=== PATIENT | female | born 1940 | race Caucasian/White ===

== ENCOUNTER 2016-11-08 12:52 | Inpatient (IN) ==
--- NOTE | 2016-11-08 15:34 | Internal Med History&Physical ---
Date of Encounter: 11/08/16 Time of Encounter: 15:32 Assessment and Plan (1) History of total left knee replacement Current visit: Yes Status: Acute Patient was brought in for rehabilitation status post left total knee replacement (2) Arthritis of knee, left Current visit: No Status: Acute This is the reason for the surgery (3) COPD (chronic obstructive pulmonary disease) Current visit: No Status: Chronic By history Qualifiers: COPD type: unspecified COPD Qualified Code(s): J44.9 - Chronic obstructive pulmonary disease, unspecified (4) History of lymphoma Current visit: No Status: Chronic Currently not an acute problem (5) Obesity (BMI 30.0-34.9) Current visit: No Status: Chronic Noted (6) Malignant lymphoma, lymphoplasmacytic Current visit: No Status: Chronic Noted by history Internal Medicine - H&P: HPI Chief complaint: Patient had severe arthritis pain in her left knee and she had a knee repla Admitted From: Hospital to Hospital Transfer Plans for Post Hospital Care: Home History of present illness: Ms. Sprague is a 76 year old female Age and is here for rehabilitation status post left total knee replacement Past Med Surg Social Fam HX - Past Medical History Medical history: CHF, COPD, coronary artery disease, diabetes, GERD, hyperlipidemia, hypertension, myocardial infarction Psychiatric history: anxiety, depression - Past Surgical History Surgical History: appendectomy, hysterectomy, orthopedic, other, other - Social History Smoking Status: Former smoker Smokeless Tobacco Status: No Alcohol use: none Drug use: none Internal Medicine - H&P: Meds Albuterol Neb [Proventil Neb] 2.5 mg IH Q4HR PRN 06/14/16 [History] Albuterol Sulfate [Ventolin Hfa] 2 puff IH Q4H PRN 06/14/16 [History] Amitriptyline HCl 100 mg PO HS 06/14/16 [History] Ascorbate Calcium [Vitamin C] 500 mg PO DAILY 06/14/16 [History] Bumetanide 3 mg PO QAM 06/14/16 [History] Bumetanide [Bumex] 1 mg PO QPM 06/14/16 [History] Cholecalciferol (D-3) [Vitamin D] 5,000 unit PO DAILY 06/14/16 [History] Clopidogrel [Plavix] 75 mg PO DAILY 06/14/16 [History] Cyanocobalamin (Vitamin B-12) [Vitamin B-12] 1,000 mcg SL DAILY 06/14/16 [ History] Darbepoetin [place] in Polysorbat [Aranesp] 200 mcg IJ Q2W 06/14/16 [History] Fluticasone Propionate Nasal [Flonase] 1 spr NS DAILY PRN 06/14/16 [History] Fluticasone/Salmeterol [Advair 250-50 Diskus] 1 each IH BID 06/14/16 [History] Guaifenesin [Mucinex] 600 mg PO Q12H 06/14/16 [History] Insulin Glargine,Hum.rec.anlog [Lantus Solostar] 25 unit SQ HS 06/14/16 [History ] Insulin LISPRO [HumaLOG] 6 units SQ TIDWM 06/14/16 [History] Isosorbide MONOnitrate (24 HR) [Imdur] 30 mg PO DAILY 06/14/16 [History] LORazepam [Ativan] 0.5 mg PO TID PRN 06/14/16 [History] Losartan Potassium [Cozaar] 100 mg PO DAILY 06/14/16 [History] Metoprolol [Lopressor] 50 mg PO BID 06/14/16 [History] Montelukast [Singulair] 10 mg PO HS 06/14/16 [History] Nitroglycerin [Nitrostat] 0.4 mg SL Q5M PRN 06/14/16 [History] Omeprazole [PriLOSEC] 40 mg PO DAILY 06/14/16 [History] Quetiapine Fumarate [SEROquel] 100 mg PO HS 06/14/16 [History] Sennosides [Senna] 8.6 mg PO DAILY 06/14/16 [History] Umeclidinium [place] [Incruse Ellipta] 1 puff IH DAILY 06/14/16 [History] Venlafaxine HCl [Effexor Xr] 225 mg PO DAILY 06/14/16 [History] HYDROcodone/Acet 10/325 mg [[place] 10-325 mg] 1 tab PO Q8H PRN 08/31/16 [History] Folic Acid 1 mg PO DAILY #30 tablet 10/23/16 [Rx] Aspirin Enteric Coated [Aspirin EC] 325 mg PO DAILY #21 tablet. 11/05/16 [Rx] HYDROcodone/Acet 5/325 mg [[place] 5-325 mg] 1 - 2 tab PO DAILY #14 tab 11/05/16 [ Rx] Atorvastatin Calcium [Lipitor] 20 mg PO Q48H 11/06/16 [History] Calcitriol 0.5 mcg PO BID 11/06/16 [History] Allergies codeine Adverse Reaction (Verified 11/06/16 12:20) Nausea NSAIDS (Non-Steroidal Anti-Inflamma Adverse Reaction (Verified 11/06/16 12:20) Nausea tramadol [From Ultram] Adverse Reaction (Verified 11/06/16 12:20) Nausea All Systems PM: A 10-system review of systems was performed and is negative for pertinent findings except as documented above in the HPI. - Constitutional Vitals: Temp Pulse Resp BP Pulse Ox 98.1 F 107 16 153/68 100 11/08/16 14:37 11/08/16 14:37 11/08/16 14:37 11/08/16 14:37 11/08/16 14:37 - Head Head exam: Present: atraumatic, normal inspection, normocephalic - Neck Neck exam general surgery: Present: supple, trachea midline. Absent: lymphadenopathy - Respiratory Respiratory exam: Present: CTAB. Absent: accessory muscle use, rales, rhonchi, wheezes - Cardiovascular Cardiovascular exam: Present: RRR, +S1, +S2. Absent: diastolic murmur, gallop, rubs, systolic murmur Internal Med - H&P Results - Labs Labs: Labs pending
[2016-11-08] MEDS ORDERED: Albuterol 2.5 MG/3 ML NEBULIZER IH PRN (16:07)
[2016-11-08] MEDS ORDERED: Fluticasone Propionate Nasal 50 MCG/SPRAY BOTTLE NS PRN (16:07)
[2016-11-08] MEDS ORDERED: Nitroglycerin 0.4 MG TAB.SUBL SL PRN (16:07)
[2016-11-08] MEDS: Insulin LISPRO 300 UNITS/3 ML VIAL SQ SCH (17:17)
[2016-11-08] MEDS: Bumetanide 1 MG TABLET PO SCH (17:17)
[2016-11-08] MEDS: *HR* HYDROcodone/Acet 10/325 mg TABLET PO PRN ×2 (17:17→21:13)
[2016-11-08] MEDS ORDERED: Insulin DETEMIR 100 UNIT/ML per UNIT SQ ONE (21:00)
[2016-11-08] MEDS: Budesonide/Formoterol 80/4.5 MDI IH SCH (21:14)
[2016-11-08] MEDS: *HR* LORazepam 0.5 MG TABLET PO PRN (21:20)
[2016-11-09] MEDS: *HR* HYDROcodone/Acet 10/325 mg TABLET PO PRN ×3 (04:32→13:34)
[2016-11-09 05:39] LABS: Basophils % 0.2 %; Eosinophils # 0.3 K/mcL (0.0-0.6); Eosinophils % 3.2 %; Hematocrit 25.8 % (35.3-44.9); Hemoglobin 8.4 g/dL (11.5-15.4); INR 1.1; Immature Granulocytes % 1.2 % (0-4); Lymphocytes # 1.3 K/mcL (0.6-4.6); Lymphocytes % 12.8 %; Mean Corpuscular HGB Conc 32.6 g/dL (31.6-35.5); Mean Corpuscular Hemoglobin 30.5 pg (28.0-33.3); Mean Corpuscular Volume 93.8 fL (83.0-100.0); Mean Platelet Volume 8.4 fL (9.4-12.4); Monocytes # 1.2 K/mcL (0.0-1.3); Monocytes % 11.7 %; Platelet Count 277 K/mcL (140-400); Prothrombin Time 11.8 Seconds (9.4-12.1); Red Blood Count 2.75 M/mcL (3.82-4.97); Red Cell Distribution Width 14.4 % (11.5-14.5); Segmented Neutrophils % 70.9 %
[2016-11-09 05:42] LABS: Activated Partial Thrombo Time 25.5 Seconds (26.0-36.0)
[2016-11-09 05:49] LABS: BUN/Creatinine Ratio 25 (6-26); Blood Urea Nitrogen 24 mg/dL (7-20); Calcium 9.9 mg/dL (8.6-10.8); Carbon Dioxide 24 mEq/L (19-29); Chloride 100 mEq/L (98-109); Glucose 122 mg/dL (70-99); Osmolality,Calculated 287 (280-300); Sodium 136 mEq/L (136-145); eGFR For African Americans > 60 (> 60); eGFR For Non-African Americans 57 (> 60)
[2016-11-09] MEDS: Bumetanide 1 MG TABLET PO SCH ×2 (08:49→18:20)
[2016-11-09] MEDS: Cholecalciferol (D-3) 1,000 UNIT TABLET PO SCH (08:49)
[2016-11-09] MEDS: Cyanocobalamin (B-12) 1,000 MCG TABLET PO SCH (08:49)
[2016-11-09] MEDS: Insulin LISPRO 300 UNITS/3 ML VIAL SQ SCH ×3 (08:50→18:20)
[2016-11-09] MEDS: Isosorbide MONOnitrate (24 HR) 30 MG TAB.ER.24H PO SCH (08:50)
[2016-11-09] MEDS: Aspirin Enteric Coated 325 MG Tablet PO SCH (08:50)
[2016-11-09] MEDS: Folic Acid 1 MG TABLET PO SCH (08:50)
[2016-11-09] MEDS: Venlafaxine XR (24 HR) 75 MG CAP.ER.24H PO SCH (08:51)
[2016-11-09] MEDS: Ascorbic Acid 500 MG TABLET PO SCH (08:52)
[2016-11-09] MEDS: (Umeclidinium Bromide [Incruse Ellipta] 1 PUFF) IH SCH (08:52)
[2016-11-09] MEDS: Budesonide/Formoterol 80/4.5 MDI IH SCH ×2 (08:52→21:35)
[2016-11-09] MEDS ORDERED: Sennosides 8.6 MG TABLET PO SCH (09:00)
--- NOTE | 2016-11-09 14:28 | Internal Med Progress Note ---
Date of Encounter: 11/09/16 Time of Encounter: 14:26 - Assessment and plan (1) History of total left knee replacement Current Visit: Yes Status: Acute Assessment and plan: Patient's here for total knee replacement due to osteoarthritis. Incisions clean dry (2) Arthritis of knee, left Current Visit: No Status: Acute Assessment and plan: Reason for the surgery (3) COPD (chronic obstructive pulmonary disease) Current Visit: No Status: Chronic Assessment and plan: By history no acute problem Qualifiers: COPD type: unspecified COPD Qualified Code(s): J44.9 - Chronic obstructive pulmonary disease, unspecified (4) History of lymphoma Current Visit: No Status: Chronic Assessment and plan: Again by history with no acute problem (5) Obesity (BMI 30.0-34.9) Current Visit: No Status: Chronic Assessment and plan: Noted (6) Malignant lymphoma, lymphoplasmacytic Current Visit: No Status: Chronic Assessment and plan: Noted - Time Spent With Patient less than 15 minutes - Subjective Interval history: Only complains pain - Constitutional Vitals: Temp Pulse Resp BP Pulse Ox 98.7 F 93 18 131/81 94 11/09/16 11:38 11/09/16 11:38 11/09/16 11:38 11/09/16 11:38 11/09/16 11:38 - Head Head exam: Present: atraumatic, normal inspection, normocephalic - Neck Neck exam general surgery: Present: supple, trachea midline. Absent: lymphadenopathy - Respiratory Respiratory exam: Present: CTAB. Absent: accessory muscle use, rales, rhonchi, wheezes - Cardiovascular Cardiovascular exam: Present: RRR, +S1, +S2. Absent: diastolic murmur, gallop, rubs, systolic murmur Internal Medicine: Result - Labs CBC & Chem 7: 11/09/16 05:30 11/09/16 05:30 Labs: Short CBC 11/09/16 Range/Units 05:30 WBC 9.9 (4.3-11.1) K/mcL Hgb 8.4 L (11.5-15.4) g/dL Hct 25.8 L (35.3-44.9) % Plt Count 277 (140-400) K/mcL Neutrophils # 7.0 (1.6-8.9) K/mcL BMP 11/09/16 05:30 Sodium 136 Potassium 4.0 Chloride 100 Carbon Dioxide 24 BUN 24 H Creatinine 0.96 Glucose 122 H Calcium 9.9 Lab as stated - ABG Interpretation ABG results: PT/INR, D-dimer PT 11.8 Seconds (9.4-12.1) 11/09/16 05:30 Consult Discharge Plan - Plan Referrals: Ender Angulo MD [Primary Care Provider] - (Tuesday, November 15, 2016 at 1:30 [facility] [place] [address], [facility], [place] [phone] November at 9:30 [facility] [place] [address], [facility], [place] [phone] November at 1:00 [address], [facility] [place], [place] [phone] [facility] Monday, December 05, 2016 at 9:45 Dar[facility] [place] [address], [facility], [place] [phone] Monday, December 12, 2016 at 3:55 [facility] [place] [address] [place], [place] [phone] Sunday, December 25, 2016 at 1:15 Ender Angulo [facility] [place] 100 [facility], [place] [phone])
[2016-11-09] MEDS: *HR* HYDROcodone/Acet 7.5/325 mg TABLET PO PRN ×2 (18:20→22:18)
[2016-11-09] MEDS: *HR* LORazepam 0.5 MG TABLET PO PRN (21:35)
[2016-11-09] MEDS: Insulin DETEMIR 100 UNIT/ML X5UNITS SQ SCH (21:36)
[2016-11-10] MEDS: *HR* HYDROcodone/Acet 7.5/325 mg TABLET PO PRN ×5 (03:31→20:46)
[2016-11-10] MEDS: Insulin LISPRO 300 UNITS/3 ML VIAL SQ SCH ×3 (07:58→16:41)
[2016-11-10] MEDS: Bumetanide 1 MG TABLET PO SCH ×2 (08:09→16:40)
[2016-11-10] MEDS: Isosorbide MONOnitrate (24 HR) 30 MG TAB.ER.24H PO SCH (08:09)
[2016-11-10] MEDS: Cyanocobalamin (B-12) 1,000 MCG TABLET PO SCH (08:10)
[2016-11-10] MEDS: Ascorbic Acid 500 MG TABLET PO SCH (08:10)
[2016-11-10] MEDS: Cholecalciferol (D-3) 1,000 UNIT TABLET PO SCH (08:10)
[2016-11-10] MEDS: Folic Acid 1 MG TABLET PO SCH (08:10)
[2016-11-10] MEDS: Sennosides 8.6 MG TABLET PO SCH (08:10)
[2016-11-10] MEDS: Aspirin Enteric Coated 325 MG Tablet PO SCH (08:11)
[2016-11-10] MEDS: Venlafaxine XR (24 HR) 75 MG CAP.ER.24H PO SCH (08:51)
[2016-11-10] MEDS: (Umeclidinium Bromide [Incruse Ellipta] 1 PUFF) IH SCH (08:55)
[2016-11-10] MEDS: Budesonide/Formoterol 80/4.5 MDI IH SCH ×2 (08:55→20:45)
--- NOTE | 2016-11-10 14:18 | Internal Med Progress Note ---
Date of Encounter: 11/10/16 Time of Encounter: 14:17 - Assessment and plan (1) History of total left knee replacement Current Visit: Yes Status: Acute (2) Arthritis of knee, left Current Visit: No Status: Acute (3) COPD (chronic obstructive pulmonary disease) Current Visit: No Status: Chronic Qualifiers: COPD type: unspecified COPD Qualified Code(s): J44.9 - Chronic obstructive pulmonary disease, unspecified (4) History of lymphoma Current Visit: No Status: Chronic (5) Obesity (BMI 30.0-34.9) Current Visit: No Status: Chronic (6) Malignant lymphoma, lymphoplasmacytic Current Visit: No Status: Chronic - Subjective Interval history: Only complains pain - Constitutional Vitals: Temp Pulse Resp BP Pulse Ox 97.6 F 91 18 123/71 97 11/10/16 06:52 11/10/16 06:52 11/10/16 06:52 11/10/16 06:52 11/10/16 06:52 - Head Head exam: Present: atraumatic, normal inspection, normocephalic - Neck Neck exam general surgery: Present: supple, trachea midline. Absent: lymphadenopathy - Respiratory Respiratory exam: Present: CTAB. Absent: accessory muscle use, rales, rhonchi, wheezes - Cardiovascular Cardiovascular exam: Present: RRR, +S1, +S2. Absent: diastolic murmur, gallop, rubs, systolic murmur - GI/Abdominal GI/Abdominal exam: Present: normal bowel sounds, soft, no peritoneal signs. Absent: distended, tenderness Internal Medicine: Result - Labs CBC & Chem 7: 11/09/16 05:30 11/09/16 05:30 - ABG Interpretation ABG results: PT/INR, D-dimer PT 11.8 Seconds (9.4-12.1) 11/09/16 05:30 Consult Discharge Plan - Plan Referrals: Ender Angulo MD [Primary Care Provider] - (Tuesday, November 15, 2016 at 1:30 [facility] [place] [address] [place] [place] [phone] November at 9:30 [facility] [place] [address], [facility], [place] [phone] November at 1:00 [address], [facility], [place] [phone] DM Foot [facility] Monday, December 05, 2016 at 9:45 [facility] [place] [address], [facility], [place] [phone] Monday, December 12, 2016 at 3:55 [facility] [place] [address] [place], [place] [phone] Sunday, December 25, 2016 at 1:15 Ender Angulo [facility] [place] [address] [facility], [place] [phone])
[2016-11-10] MEDS: *HR* LORazepam 0.5 MG TABLET PO PRN (20:46)
[2016-11-10] MEDS: Insulin DETEMIR 100 UNIT/ML X5UNITS SQ SCH (20:47)
[2016-11-11] MEDS: *HR* HYDROcodone/Acet 7.5/325 mg TABLET PO PRN ×4 (06:09→20:28)
[2016-11-11] MEDS: Aspirin Enteric Coated 325 MG Tablet PO SCH (08:40)
[2016-11-11] MEDS: Insulin LISPRO 300 UNITS/3 ML VIAL SQ SCH ×3 (08:40→17:04)
[2016-11-11] MEDS: Cyanocobalamin (B-12) 1,000 MCG TABLET PO SCH (08:41)
[2016-11-11] MEDS: Bumetanide 1 MG TABLET PO SCH ×2 (08:42→17:06)
[2016-11-11] MEDS: Isosorbide MONOnitrate (24 HR) 30 MG TAB.ER.24H PO SCH (08:42)
[2016-11-11] MEDS: Ascorbic Acid 500 MG TABLET PO SCH (08:42)
[2016-11-11] MEDS: Sennosides 8.6 MG TABLET PO SCH (08:42)
[2016-11-11] MEDS: Cholecalciferol (D-3) 1,000 UNIT TABLET PO SCH (08:43)
[2016-11-11] MEDS: Folic Acid 1 MG TABLET PO SCH (08:43)
[2016-11-11] MEDS: Venlafaxine XR (24 HR) 75 MG CAP.ER.24H PO SCH (08:44)
[2016-11-11] MEDS: (Umeclidinium Bromide [Incruse Ellipta] 1 PUFF) IH SCH (08:46)
[2016-11-11] MEDS: Budesonide/Formoterol 80/4.5 MDI IH SCH ×2 (08:46→20:33)
[2016-11-11] MEDS: *HR* LORazepam 0.5 MG TABLET PO PRN (20:28)
[2016-11-11] MEDS: Insulin DETEMIR 100 UNIT/ML X5UNITS SQ SCH (20:29)
[2016-11-12] MEDS: *HR* HYDROcodone/Acet 7.5/325 mg TABLET PO PRN ×4 (06:32→20:14)
[2016-11-12] MEDS: Sennosides 8.6 MG TABLET PO SCH (08:34)
[2016-11-12] MEDS: Bumetanide 1 MG TABLET PO SCH ×2 (08:35→16:22)
[2016-11-12] MEDS: Isosorbide MONOnitrate (24 HR) 30 MG TAB.ER.24H PO SCH (08:35)
[2016-11-12] MEDS: Aspirin Enteric Coated 325 MG Tablet PO SCH (08:35)
[2016-11-12] MEDS: Budesonide/Formoterol 80/4.5 MDI IH SCH ×2 (08:36→20:16)
[2016-11-12] MEDS: Cyanocobalamin (B-12) 1,000 MCG TABLET PO SCH (08:36)
[2016-11-12] MEDS: Folic Acid 1 MG TABLET PO SCH (08:36)
[2016-11-12] MEDS: Cholecalciferol (D-3) 1,000 UNIT TABLET PO SCH (08:36)
[2016-11-12] MEDS: Ascorbic Acid 500 MG TABLET PO SCH (08:36)
[2016-11-12] MEDS: Insulin LISPRO 300 UNITS/3 ML VIAL SQ SCH ×3 (08:37→16:22)
[2016-11-12] MEDS: Venlafaxine XR (24 HR) 75 MG CAP.ER.24H PO SCH (08:38)
[2016-11-12] MEDS: (Umeclidinium Bromide [Incruse Ellipta] 1 PUFF) IH SCH (08:52)
--- NOTE | 2016-11-12 10:28 | Internal Med Progress Note ---
Date of Encounter: 11/12/16 Time of Encounter: 10:26 - Assessment and plan (1) History of total left knee replacement Current Visit: Yes Status: Acute Assessment and plan: Patient's dressing is clean and dry she is using her polar pack and overall is doing better today because it is a rest day (2) Arthritis of knee, left Current Visit: No Status: Acute Assessment and plan: Reason for her surgery (3) COPD (chronic obstructive pulmonary disease) Current Visit: No Status: Chronic Assessment and plan: Early stable Qualifiers: COPD type: unspecified COPD Qualified Code(s): J44.9 - Chronic obstructive pulmonary disease, unspecified (4) History of lymphoma Current Visit: No Status: Chronic Assessment and plan: Currently nonacute issue (5) Obesity (BMI 30.0-34.9) Current Visit: No Status: Chronic Assessment and plan: Noted (6) Malignant lymphoma, lymphoplasmacytic Current Visit: No Status: Chronic - Time Spent With Patient less than 15 minutes - Subjective Interval history: Resting today as I said before only complaint is pain but it is better we do not doing therapy - Constitutional Vitals: Temp Pulse Resp BP Pulse Ox 98.7 F 91 18 116/57 95 11/12/16 07:10 11/12/16 07:10 11/12/16 07:10 11/12/16 07:10 11/12/16 07:10 - Head Head exam: Present: atraumatic, normal inspection, normocephalic - Neck Neck exam general surgery: Present: supple, trachea midline. Absent: lymphadenopathy - Respiratory Respiratory exam: Present: CTAB. Absent: accessory muscle use, rales, rhonchi, wheezes - Cardiovascular Cardiovascular exam: Present: RRR, +S1, +S2. Absent: diastolic murmur, gallop, rubs, systolic murmur Internal Medicine: Result - Labs CBC & Chem 7: 11/09/16 05:30 11/09/16 05:30 Labs: Lab is stable - ABG Interpretation ABG results: PT/INR, D-dimer PT 11.8 Seconds (9.4-12.1) 11/09/16 05:30 Consult Discharge Plan - Plan Referrals: Ender Angulo MD [Primary Care Provider] - (Tuesday, November 15, 2016 at 1:30 [facility] [place] [address], [address], [place] [phone] November at 9:30 LuisYaquelni prakashney [facility] [address], [address], [place] [phone] November at 1:00 [address], [address] [phone] DM Foot [facility] Monday, December 05, 2016 at 9:45 [facility] [address], [address] [place] [address], [place] [phone] Monday, December 12, 2016 at 3:55 [facility] [address] [place] [address], [place] [phone] Sunday, December 25, 2016 at 1:15 Ender Angulo [facility] [address] [facility] [address], [place] [phone])
[2016-11-12] MEDS: *HR* LORazepam 0.5 MG TABLET PO PRN (20:16)
[2016-11-12] MEDS: Insulin DETEMIR 100 UNIT/ML X5UNITS SQ SCH (20:16)
[2016-11-13] MEDS: *HR* HYDROcodone/Acet 7.5/325 mg TABLET PO PRN ×4 (06:01→19:17)
[2016-11-13 06:11] LABS: Basophils % 0.3 %; Eosinophils # 0.4 K/mcL (0.0-0.6); Eosinophils % 5.2 %; Hematocrit 26.2 % (35.3-44.9); Hemoglobin 8.3 g/dL (11.5-15.4); Immature Granulocytes % 3.8 % (0-4); Lymphocytes # 1.6 K/mcL (0.6-4.6); Lymphocytes % 22.8 %; Mean Corpuscular HGB Conc 31.7 g/dL (31.6-35.5); Mean Corpuscular Hemoglobin 30.5 pg (28.0-33.3); Mean Corpuscular Volume 96.3 fL (83.0-100.0); Mean Platelet Volume 8.5 fL (9.4-12.4); Monocytes # 1.3 K/mcL (0.0-1.3); Monocytes % 17.7 %; Neutrophils # 3.6 K/mcL (1.6-8.9); Platelet Count 325 K/mcL (140-400); Red Blood Count 2.72 M/mcL (3.82-4.97); Red Cell Distribution Width 14.6 % (11.5-14.5); Segmented Neutrophils % 50.2 %
[2016-11-13 06:20] LABS: Calcium 9.1 mg/dL (8.6-10.8); Potassium 4.9 mEq/L (3.5-4.5)
[2016-11-13] MEDS: Folic Acid 1 MG TABLET PO SCH (07:57)
[2016-11-13] MEDS: Cholecalciferol (D-3) 1,000 UNIT TABLET PO SCH (07:57)
[2016-11-13] MEDS: Aspirin Enteric Coated 325 MG Tablet PO SCH (07:57)
[2016-11-13] MEDS: Sennosides 8.6 MG TABLET PO SCH (07:57)
[2016-11-13] MEDS: Cyanocobalamin (B-12) 1,000 MCG TABLET PO SCH (07:57)
[2016-11-13] MEDS: Ascorbic Acid 500 MG TABLET PO SCH (07:57)
[2016-11-13] MEDS: Insulin LISPRO 300 UNITS/3 ML VIAL SQ SCH ×3 (07:58→17:25)
[2016-11-13] MEDS: Bumetanide 1 MG TABLET PO SCH ×2 (07:58→17:25)
[2016-11-13] MEDS: Venlafaxine XR (24 HR) 75 MG CAP.ER.24H PO SCH (07:58)
[2016-11-13] MEDS: Isosorbide MONOnitrate (24 HR) 30 MG TAB.ER.24H PO SCH (07:58)
[2016-11-13] MEDS: *HR* LORazepam 0.5 MG TABLET PO PRN ×2 (08:07→19:17)
[2016-11-13] MEDS: Budesonide/Formoterol 80/4.5 MDI IH SCH ×2 (10:25→19:16)
[2016-11-13] MEDS: (Umeclidinium Bromide [Incruse Ellipta] 1 PUFF) IH SCH (10:27)
--- NOTE | 2016-11-13 15:25 | Internal Med Progress Note ---
Date of Encounter: 11/13/16 Time of Encounter: 15:23 - Assessment and plan (1) History of total left knee replacement Current Visit: Yes Status: Acute Assessment and plan: Total left knee replacement patient is using the polar pack anticipating in rehabilitation (2) Arthritis of knee, left Current Visit: No Status: Acute Assessment and plan: Cause for her total knee replacement (3) COPD (chronic obstructive pulmonary disease) Current Visit: No Status: Chronic Assessment and plan: Noted this does somewhat limit her endurance. Qualifiers: COPD type: unspecified COPD Qualified Code(s): J44.9 - Chronic obstructive pulmonary disease, unspecified (4) History of lymphoma Current Visit: No Status: Chronic Assessment and plan: Noted (5) Obesity (BMI 30.0-34.9) Current Visit: No Status: Chronic Assessment and plan: Noted (6) Malignant lymphoma, lymphoplasmacytic Current Visit: No Status: Chronic Assessment and plan: Noted - Time Spent With Patient less than 15 minutes - Subjective Interval history: Patient is still working with the therapist she walked 150 feet with standby assist she is independent in ADLs will make her independent in room. - Constitutional Vitals: Temp Pulse Resp BP Pulse Ox 98.2 F 89 20 102/60 96 11/13/16 06:50 11/13/16 06:50 11/13/16 06:50 11/13/16 06:50 11/13/16 06:50 - Head Head exam: Present: atraumatic, normal inspection, normocephalic - Neck Neck exam general surgery: Present: supple, trachea midline. Absent: lymphadenopathy - Respiratory Respiratory exam: Present: CTAB. Absent: accessory muscle use, rales, rhonchi, wheezes - Cardiovascular Cardiovascular exam: Present: RRR, +S1, +S2. Absent: diastolic murmur, gallop, rubs, systolic murmur Internal Medicine: Result - Labs CBC & Chem 7: 11/13/16 05:50 11/13/16 05:50 Labs: Short CBC 11/13/16 Range/Units 05:50 WBC 7.1 (4.3-11.1) K/mcL Hgb 8.3 L (11.5-15.4) g/dL Hct 26.2 L (35.3-44.9) % Plt Count 325 (140-400) K/mcL Neutrophils # 3.6 (1.6-8.9) K/mcL BMP 11/13/16 05:50 Sodium 134 L Potassium 4.9 H Chloride 98 Carbon Dioxide 26 BUN 37 H Creatinine 1.23 H Glucose 104 H Calcium 9.1 Essentially stable. - ABG Interpretation ABG results: PT/INR, D-dimer PT 11.8 Seconds (9.4-12.1) 11/09/16 05:30 Consult Discharge Plan - Plan Referrals: Ender Angulo MD [Primary Care Provider] - (Tuesday, November 15, 2016 at 1:30 [facility] [place] [address], [facility] [place], [place] [phone] November at 9:30 [facility] [place] [address], [facility] [place], [place] [phone] November at 1:00 [address], [facility] [place], [place] [phone] DM Foot [facility] Monday, December 05, 2016 at 9:45 Dar[facility] [place] [address], [facility] [place], [place] [phone] Monday, December 12, 2016 at 3:55 [facility] [place] [address] [place], [place] [phone] Sunday, December 25, 2016 at 1:15 Ender Angulo [facility] [place] 100 [facility] [place], [place] [phone])
[2016-11-13] MEDS: Insulin DETEMIR 100 UNIT/ML X5UNITS SQ SCH (21:00)
[2016-11-14] MEDS: *HR* HYDROcodone/Acet 7.5/325 mg TABLET PO PRN ×3 (06:36→17:33)
[2016-11-14] MEDS: Insulin LISPRO 300 UNITS/3 ML VIAL SQ SCH ×3 (07:59→17:02)
[2016-11-14] MEDS: Cholecalciferol (D-3) 1,000 UNIT TABLET PO SCH (09:01)
[2016-11-14] MEDS: Bumetanide 1 MG TABLET PO SCH ×2 (09:01→17:33)
[2016-11-14] MEDS: Budesonide/Formoterol 80/4.5 MDI IH SCH ×2 (09:01→21:08)
[2016-11-14] MEDS: Cyanocobalamin (B-12) 1,000 MCG TABLET PO SCH (09:02)
[2016-11-14] MEDS: Ascorbic Acid 500 MG TABLET PO SCH (09:03)
[2016-11-14] MEDS: Folic Acid 1 MG TABLET PO SCH (09:03)
[2016-11-14] MEDS: Sennosides 8.6 MG TABLET PO SCH (09:03)
[2016-11-14] MEDS: Aspirin Enteric Coated 325 MG Tablet PO SCH (09:04)
[2016-11-14] MEDS: Venlafaxine XR (24 HR) 75 MG CAP.ER.24H PO SCH (09:04)
[2016-11-14] MEDS: Isosorbide MONOnitrate (24 HR) 30 MG TAB.ER.24H PO SCH (09:04)
[2016-11-14] MEDS: (Umeclidinium Bromide [Incruse Ellipta] 1 PUFF) IH SCH (09:05)
[2016-11-14] MEDS: *HR* LORazepam 0.5 MG TABLET PO PRN ×2 (10:33→20:43)
--- NOTE | 2016-11-14 11:35 | Discharge Summary ---
Date of Encounter: 11/14/16 Time of Encounter: 11:33 - Discharge Diagnosis (1) History of total left knee replacement Priority: Primary Status: Acute (2) Arthritis of knee, left Priority: Primary Status: Acute (3) COPD (chronic obstructive pulmonary disease) Priority: Secondary Status: Chronic Qualifiers: COPD type: unspecified COPD Qualified Code(s): J44.9 - Chronic obstructive pulmonary disease, unspecified (4) History of lymphoma Priority: Secondary Status: Chronic (5) Obesity (BMI 30.0-34.9) Priority: Secondary Status: Chronic (6) Malignant lymphoma, lymphoplasmacytic Priority: Secondary Status: Chronic - Discharge Medications Home Medications: Albuterol Neb [Proventil Neb] 2.5 mg IH Q4HR PRN 06/14/16 [History] Albuterol Sulfate [Ventolin Hfa] 2 puff IH Q4H PRN 06/14/16 [History] Amitriptyline HCl 100 mg PO HS 06/14/16 [History] Ascorbate Calcium [Vitamin C] 500 mg PO DAILY 06/14/16 [History] Bumetanide 3 mg PO QAM 06/14/16 [History] Bumetanide [Bumex] 1 mg PO QPM 06/14/16 [History] Cholecalciferol (D-3) [Vitamin D] 5,000 unit PO DAILY 06/14/16 [History] Clopidogrel [Plavix] 75 mg PO DAILY 06/14/16 [History] Darbepoetin [place] in Polysorbat [Aranesp] 200 mcg IJ Q2W 06/14/16 [History] Fluticasone Propionate Nasal [Flonase] 1 spr NS DAILY PRN 06/14/16 [History] Fluticasone/Salmeterol [Advair 250-50 Diskus] 1 each IH BID 06/14/16 [History] Guaifenesin [Mucinex] 600 mg PO Q12H 06/14/16 [History] Insulin Glargine,Hum.rec.anlog [Lantus Solostar] 25 unit SQ HS 06/14/16 [History ] Insulin LISPRO [HumaLOG] 6 units SQ TIDWM 06/14/16 [History] Isosorbide MONOnitrate (24 HR) [Imdur] 30 mg PO DAILY 06/14/16 [History] LORazepam [Ativan] 0.5 mg PO TID PRN 06/14/16 [History] Losartan Potassium [Cozaar] 100 mg PO DAILY 06/14/16 [History] Metoprolol [Lopressor] 50 mg PO BID 06/14/16 [History] Montelukast [Singulair] 10 mg PO HS 06/14/16 [History] Nitroglycerin [Nitrostat] 0.4 mg SL Q5M PRN 06/14/16 [History] Omeprazole [PriLOSEC] 40 mg PO BID 06/14/16 [History] Quetiapine Fumarate [SEROquel] 100 mg PO HS 06/14/16 [History] Sennosides [Senna] 8.6 mg PO DAILY 06/14/16 [History] Umeclidinium [place] [Incruse Ellipta] 1 puff IH DAILY 06/14/16 [History] Venlafaxine HCl [Effexor Xr] 225 mg PO DAILY 06/14/16 [History] HYDROcodone/Acet 10/325 mg [[place] 10-325 mg] 1 tab PO Q8H PRN 08/31/16 [History] Folic Acid 1 mg PO DAILY #30 tablet 10/23/16 [Rx] Aspirin Enteric Coated [Aspirin EC] 325 mg PO DAILY #21 tablet. 11/05/16 [Rx] Atorvastatin Calcium [Lipitor] 20 mg PO Q48H 11/06/16 [History] Calcitriol 0.5 mcg PO BID 11/06/16 [History] Cyanocobalamin (Vitamin B-12) [Vitamin B-12] 50 mcg PO DAILY 11/08/16 [History] Docusate [Colace] 100 mg PO DAILY 11/08/16 [History] Allergies/Adverse Reactions: Allergies codeine Adverse Reaction (Verified 11/06/16 12:20) Nausea NSAIDS (Non-Steroidal Anti-Inflamma Adverse Reaction (Verified 11/06/16 12:20) Nausea tramadol [From Ultram] Adverse Reaction (Verified 11/06/16 12:20) Nausea Date of admission: 11/08/16 14:23 Primary care physician: Ender Angulo MD Consults: 11/08/16 16:16 Consult to Occupational Therapy [CONS] Routine Comment: Evaluate, develop and implement POC Consult to Physical Therapy [CONS] Routine Comment: Evaluate, develop and implement POC Consult to Recreational Therapy [CONS] Routine Comment: Evaluate, develop and implement POC Discharging clinician: Silverio Walton Anticipated date of discharge: 11/15/16 - Patient Status Disposition: Home Health Service Condition: Good Functional capacity at discharge: uses cane/walker Overall status at discharge: patient is progressing back to baseline - Discharge Instructions Follow Up With: Ender Angulo MD [Primary Care Provider] - (Tuesday, November 15, 2016 at 1:30 [facility] [place] [address], [place], [place] [phone] , November 23, 2016 at 9:30 Louisa Thompson [facility] [place] [address], [place], [place] [phone] , November 30, 2016 at 1:00 [address], [place], [place] [phone] DM Foot [facility] Monday, December 05, 2016 at 9:45 Dar[facility] [place] [address], [place], [place] [phone] Monday, December 12, 2016 at 3:55 [facility] [place] [address] [place], [place] [phone] Sunday, December 25, 2016 at 1:15 Ender Angulo [facility] 100 [facility], [place] [phone]) - Diet and Activity Activity: ambulate only with your walker Interval History: Patient was brought here after surgery and is participated in PT OT and TR. It is done well. Hospital course: Ms. Sprague is a 76 year old female Elizabeth came here after knee surgery and will be discharged from the company of her family to use walker. She has follow-up appointments to see her surgeon - Time Spent with Patient Total time spent providing and/or coordinating discharge services: Less than 30 minutes - Constitutional Vitals: Temp Pulse Resp BP Pulse Ox 98.3 F 82 16 134/77 95 11/14/16 07:00 11/14/16 07:00 11/14/16 07:00 11/14/16 07:00 11/14/16 07:00 - Head Head exam: Present: atraumatic, normal inspection, normocephalic - Neck Neck exam general surgery: Present: supple, trachea midline. Absent: lymphadenopathy - Respiratory Respiratory exam: Present: CTAB. Absent: accessory muscle use, rales, rhonchi, wheezes - Cardiovascular Cardiovascular exam: Present: RRR, +S1, +S2. Absent: diastolic murmur, gallop, rubs, systolic murmur
[2016-11-14] MEDS: Insulin DETEMIR 100 UNIT/ML X5UNITS SQ SCH (20:33)
[2016-11-15] MEDS: *HR* HYDROcodone/Acet 7.5/325 mg TABLET PO PRN (07:40)
[2016-11-15] MEDS: Sennosides 8.6 MG TABLET PO SCH (07:40)
[2016-11-15] MEDS: *HR* LORazepam 0.5 MG TABLET PO PRN (07:40)
[2016-11-15] MEDS: Isosorbide MONOnitrate (24 HR) 30 MG TAB.ER.24H PO SCH (07:41)
[2016-11-15] MEDS: Folic Acid 1 MG TABLET PO SCH (07:41)
[2016-11-15] MEDS: Aspirin Enteric Coated 325 MG Tablet PO SCH (07:42)
[2016-11-15] MEDS: Cyanocobalamin (B-12) 1,000 MCG TABLET PO SCH (07:42)
[2016-11-15] MEDS: Ascorbic Acid 500 MG TABLET PO SCH (07:42)
[2016-11-15] MEDS: Cholecalciferol (D-3) 1,000 UNIT TABLET PO SCH (07:42)
[2016-11-15] MEDS: Bumetanide 1 MG TABLET PO SCH (07:43)
[2016-11-15] MEDS: Insulin LISPRO 300 UNITS/3 ML VIAL SQ SCH (07:43)
[2016-11-15] MEDS: Venlafaxine XR (24 HR) 75 MG CAP.ER.24H PO SCH (07:44)
[2016-11-15] MEDS: Budesonide/Formoterol 80/4.5 MDI IH SCH (07:48)
[2016-11-15] MEDS: (Umeclidinium Bromide [Incruse Ellipta] 1 PUFF) IH SCH (07:48)
[2016-11-15 07:57] VITALS: BP 115/63
== END 2016-11-15 11:05 | disposition home health service (06) | DRG 561 ==
LOC: INPGRE 14:23
PROVIDERS: ADMIT Internal Medicine; ATTEND Internal Medicine

== ENCOUNTER 2020-07-30 17:06 | Inpatient (IN) ==
[2020-07-31] MEDS ORDERED: Acetaminophen 325 MG TABLET PO PRN (16:28)
[2020-07-31] MEDS ORDERED: Fluticasone Propionate Nasal 50 MCG/SPRAY BOTTLE NS PRN (16:28)
[2020-07-31] MEDS ORDERED: *HR* OxyCODONE/APAP 5/325 TABLET PO PRN (16:30)
[2020-07-31] MEDS: *HR* HYDROcodone/Acet 10/325 mg TABLET PO PRN (18:03)
[2020-07-31] MEDS ORDERED: Albuterol 2.5 MG/3 ML NEBULIZER IH PRN (20:11)
[2020-07-31] MEDS: Mirtazapine 15 MG TABLET PO SCH (20:20)
[2020-07-31] MEDS: QUEtiapine Fumarate 25 MG TABLET PO SCH (20:21)
[2020-07-31] MEDS ORDERED: Albuterol 2.5 MG/3 ML NEBULIZER IH SCH (21:00)
[2020-07-31] MEDS ORDERED: Bumetanide 1 MG TABLET PO SCH (21:00)
[2020-08-01] MEDS: *HR* HYDROcodone/Acet 10/325 mg TABLET PO PRN ×3 (03:49→20:32)
[2020-08-01 05:03] LABS: Basophils % 0.3 %; Eosinophils # 0.3 K/mcL (0.0-0.6); Eosinophils % 4.4 %; Hematocrit 24.5 % (35.3-44.9); Hemoglobin 7.7 g/dL (11.5-15.4); Immature Granulocytes % 0.6 % (0-4); Lymphocytes # 1.4 K/mcL (0.6-4.6); Mean Corpuscular HGB Conc 31.4 g/dL (31.6-35.5); Mean Corpuscular Hemoglobin 31.3 pg (28.0-33.3); Mean Corpuscular Volume 99.6 fL (83.0-100.0); Mean Platelet Volume 8.3 fL (9.4-12.4); Monocytes # 0.9 K/mcL (0.0-1.3); Monocytes % 12.4 %; Neutrophils # 4.5 K/mcL (1.6-8.9); Platelet Count 299 K/mcL (140-400); Red Blood Count 2.46 M/mcL (3.82-4.97); Red Cell Distribution Width 13.3 % (11.5-14.5); Segmented Neutrophils % 63.3 %; White Blood Count 7.1 K/mcL (4.3-11.1)
[2020-08-01 05:17] LABS: Albumin 2.7 g/dL (3.5-5.7); Bilirubin,Total 0.3 mg/dL (0.3-1.0); Calcium 9.4 mg/dL (8.6-10.3); Globulin 2.6 g/dL (2.4-3.5); Magnesium 1.9 mg/dL (1.6-2.6); Potassium 4.9 mEq/L (3.5-5.1); Total Protein 5.3 g/dL (6.4-8.9)
[2020-08-01] MEDS: Bumetanide 1 MG TABLET PO SCH ×2 (08:59→17:35)
[2020-08-01] MEDS: Ascorbic Acid 500 MG TABLET PO SCH (09:00)
[2020-08-01] MEDS: Cholecalciferol (D-3) 1,000 UNIT (25MCG) TABLET PO SCH (09:00)
[2020-08-01] MEDS: calcitrioL 0.25 MCG CAPSULE PO SCH (09:00)
[2020-08-01] MEDS: amLODIPine 5 MG TABLET PO SCH (09:00)
[2020-08-01] MEDS: Magnesium Oxide 400 MG TABLET PO SCH (09:02)
[2020-08-01] MEDS: Folic Acid 1 MG TABLET PO SCH (09:02)
[2020-08-01] MEDS: Cyanocobalamin (B-12) 1,000 MCG TABLET PO SCH (09:02)
[2020-08-01] MEDS: Isosorbide MONOnitrate (24 HR) 30 MG TAB.ER.24H PO SCH (09:02)
[2020-08-01] MEDS: Clotrimazole/Betameth Dip CRM 45 APPL/45 GM TUBE TP SCH ×2 (09:03→22:22)
[2020-08-01] MEDS ORDERED: Budesonide/Formoterol 160/4.5 1 PUFF INH IH SCH (10:00)
[2020-08-01] MEDS ORDERED: Tiotropium 10 INH DOSE IH SCH (10:00)
[2020-08-01] MEDS ORDERED: Sennosides/Docusate Sodium TABLET PO SCH (12:32)
[2020-08-01] MEDS: Sennosides 8.6 MG TABLET PO SCH (20:30)
[2020-08-01] MEDS: Mirtazapine 15 MG TABLET PO SCH (20:31)
[2020-08-01] MEDS: QUEtiapine Fumarate 25 MG TABLET PO SCH (20:32)
[2020-08-02] MEDS: *HR* HYDROcodone/Acet 10/325 mg TABLET PO PRN ×4 (04:30→23:37)
[2020-08-02] MEDS: Cholecalciferol (D-3) 1,000 UNIT (25MCG) TABLET PO SCH (09:12)
[2020-08-02] MEDS: Sennosides 8.6 MG TABLET PO SCH ×2 (09:12→20:26)
[2020-08-02] MEDS: Magnesium Oxide 400 MG TABLET PO SCH (09:12)
[2020-08-02] MEDS: calcitrioL 0.25 MCG CAPSULE PO SCH (09:12)
[2020-08-02] MEDS: Folic Acid 1 MG TABLET PO SCH (09:12)
[2020-08-02] MEDS: Bumetanide 1 MG TABLET PO SCH ×2 (09:13→16:26)
[2020-08-02] MEDS: Ascorbic Acid 500 MG TABLET PO SCH (09:13)
[2020-08-02] MEDS: Isosorbide MONOnitrate (24 HR) 30 MG TAB.ER.24H PO SCH (09:14)
[2020-08-02] MEDS: amLODIPine 5 MG TABLET PO SCH (09:15)
[2020-08-02] MEDS: Cyanocobalamin (B-12) 1,000 MCG TABLET PO SCH (09:16)
[2020-08-02] MEDS: Clotrimazole/Betameth Dip CRM 45 APPL/45 GM TUBE TP SCH ×2 (09:16→20:26)
[2020-08-02 11:48] LABS: Hemoglobin 8.3 g/dL (11.5-15.4)
[2020-08-02 19:27] LABS: % Iron Saturation 20 % (15-50); Iron 46 mcg/dL (50-170); Transferrin 162 mg/dL (203-362)
[2020-08-02 19:56] LABS: Folate > 22.3 ng/mL (3.0-16.0); Vitamin B12 875 pg/mL (250-1100)
[2020-08-02] MEDS: QUEtiapine Fumarate 25 MG TABLET PO SCH (20:24)
[2020-08-02] MEDS: Mirtazapine 15 MG TABLET PO SCH (20:25)
[2020-08-03] MEDS: *HR* HYDROcodone/Acet 10/325 mg TABLET PO PRN ×2 (09:21→16:19)
[2020-08-03] MEDS: Cyanocobalamin (B-12) 1,000 MCG TABLET PO SCH (09:21)
[2020-08-03] MEDS: amLODIPine 5 MG TABLET PO SCH (09:21)
[2020-08-03] MEDS: calcitrioL 0.25 MCG CAPSULE PO SCH (09:22)
[2020-08-03] MEDS: Folic Acid 1 MG TABLET PO SCH (09:22)
[2020-08-03] MEDS: Ascorbic Acid 500 MG TABLET PO SCH (09:22)
[2020-08-03] MEDS: Magnesium Oxide 400 MG TABLET PO SCH (09:22)
[2020-08-03] MEDS: Isosorbide MONOnitrate (24 HR) 30 MG TAB.ER.24H PO SCH (09:22)
[2020-08-03] MEDS: Cholecalciferol (D-3) 1,000 UNIT (25MCG) TABLET PO SCH (09:22)
[2020-08-03] MEDS: Bumetanide 1 MG TABLET PO SCH ×2 (09:22→16:19)
[2020-08-03] MEDS: Clotrimazole/Betameth Dip CRM 45 APPL/45 GM TUBE TP SCH ×2 (09:23→19:53)
[2020-08-03] MEDS: Sennosides 8.6 MG TABLET PO SCH ×2 (09:23→19:50)
[2020-08-03] MEDS: QUEtiapine Fumarate 25 MG TABLET PO SCH (19:51)
[2020-08-03] MEDS: Mirtazapine 15 MG TABLET PO SCH (19:52)
[2020-08-04] MEDS: *HR* HYDROcodone/Acet 10/325 mg TABLET PO PRN ×4 (01:26→21:26)
[2020-08-04] MEDS: Folic Acid 1 MG TABLET PO SCH (09:05)
[2020-08-04] MEDS: Cyanocobalamin (B-12) 1,000 MCG TABLET PO SCH (09:05)
[2020-08-04] MEDS: Bumetanide 1 MG TABLET PO SCH ×2 (09:06→17:39)
[2020-08-04] MEDS: Ascorbic Acid 500 MG TABLET PO SCH (09:07)
[2020-08-04] MEDS: Isosorbide MONOnitrate (24 HR) 30 MG TAB.ER.24H PO SCH (09:07)
[2020-08-04] MEDS: Sennosides 8.6 MG TABLET PO SCH ×2 (09:07→19:58)
[2020-08-04] MEDS: Cholecalciferol (D-3) 1,000 UNIT (25MCG) TABLET PO SCH (09:07)
[2020-08-04] MEDS: amLODIPine 5 MG TABLET PO SCH (09:07)
[2020-08-04] MEDS: Clotrimazole/Betameth Dip CRM 45 APPL/45 GM TUBE TP SCH ×2 (09:08→20:01)
[2020-08-04] MEDS: Magnesium Oxide 400 MG TABLET PO SCH (09:08)
[2020-08-04] MEDS: calcitrioL 0.25 MCG CAPSULE PO SCH (09:09)
[2020-08-04] MEDS: Mirtazapine 15 MG TABLET PO SCH (19:59)
[2020-08-04] MEDS: QUEtiapine Fumarate 25 MG TABLET PO SCH (20:00)
[2020-08-05 04:59] LABS: Basophils % 0.3 %; Eosinophils # 0.5 K/mcL (0.0-0.6); Eosinophils % 6.6 %; Hematocrit 22.7 % (35.3-44.9); Hemoglobin 7.2 g/dL (11.5-15.4); Immature Granulocytes % 0.9 % (0-4); Lymphocytes # 1.8 K/mcL (0.6-4.6); Lymphocytes % 23.2 %; Mean Corpuscular HGB Conc 31.7 g/dL (31.6-35.5); Mean Corpuscular Hemoglobin 31.7 pg (28.0-33.3); Mean Platelet Volume 8.3 fL (9.4-12.4); Monocytes % 13.5 %; Neutrophils # 4.2 K/mcL (1.6-8.9); Platelet Count 301 K/mcL (140-400); Red Blood Count 2.27 M/mcL (3.82-4.97); Red Cell Distribution Width 13.2 % (11.5-14.5); Segmented Neutrophils % 55.5 %; White Blood Count 7.6 K/mcL (4.3-11.1)
[2020-08-05 05:10] LABS: Calcium 9.4 mg/dL (8.6-10.3); Potassium 4.6 mEq/L (3.5-5.1)
[2020-08-05 05:47] LABS: Albumin 2.7 g/dL (3.5-5.7); Phosphorous 3.4 mg/dL (2.7-4.5)
[2020-08-05] MEDS: *HR* HYDROcodone/Acet 10/325 mg TABLET PO PRN ×3 (06:02→18:37)
[2020-08-05] MEDS: calcitrioL 0.25 MCG CAPSULE PO SCH (08:57)
[2020-08-05] MEDS: amLODIPine 5 MG TABLET PO SCH (08:58)
[2020-08-05] MEDS: Cyanocobalamin (B-12) 1,000 MCG TABLET PO SCH (08:58)
[2020-08-05] MEDS: Cholecalciferol (D-3) 1,000 UNIT (25MCG) TABLET PO SCH (08:58)
[2020-08-05] MEDS: Folic Acid 1 MG TABLET PO SCH (08:58)
[2020-08-05] MEDS: Magnesium Oxide 400 MG TABLET PO SCH (08:59)
[2020-08-05] MEDS: Sennosides 8.6 MG TABLET PO SCH ×2 (08:59→20:45)
[2020-08-05] MEDS: Clotrimazole/Betameth Dip CRM 45 APPL/45 GM TUBE TP SCH ×2 (08:59→20:45)
[2020-08-05] MEDS: Ascorbic Acid 500 MG TABLET PO SCH (08:59)
[2020-08-05] MEDS: Isosorbide MONOnitrate (24 HR) 30 MG TAB.ER.24H PO SCH (08:59)
[2020-08-05] MEDS: Bumetanide 1 MG TABLET PO SCH ×2 (08:59→18:37)
[2020-08-05] MEDS: Mirtazapine 15 MG TABLET PO SCH (20:45)
[2020-08-05] MEDS: QUEtiapine Fumarate 25 MG TABLET PO SCH (20:46)
[2020-08-06] MEDS: *HR* HYDROcodone/Acet 10/325 mg TABLET PO PRN ×5 (00:24→21:22)
[2020-08-06] MEDS: Isosorbide MONOnitrate (24 HR) 30 MG TAB.ER.24H PO SCH (10:20)
[2020-08-06] MEDS: Cholecalciferol (D-3) 1,000 UNIT (25MCG) TABLET PO SCH (10:20)
[2020-08-06] MEDS: Sennosides 8.6 MG TABLET PO SCH ×2 (10:20→20:21)
[2020-08-06] MEDS: amLODIPine 5 MG TABLET PO SCH (10:20)
[2020-08-06] MEDS: calcitrioL 0.25 MCG CAPSULE PO SCH (10:20)
[2020-08-06] MEDS: Ascorbic Acid 500 MG TABLET PO SCH (10:21)
[2020-08-06] MEDS: Bumetanide 1 MG TABLET PO SCH ×2 (10:21→17:05)
[2020-08-06] MEDS: Folic Acid 1 MG TABLET PO SCH (10:21)
[2020-08-06] MEDS: Magnesium Oxide 400 MG TABLET PO SCH (10:21)
[2020-08-06 10:34] LABS: Basophils % 0.3 %; Eosinophils # 0.5 K/mcL (0.0-0.6); Eosinophils % 6.1 %; Hemoglobin 7.9 g/dL (11.5-15.4); Immature Granulocytes % 1.1 % (0-4); Lymphocytes # 1.2 K/mcL (0.6-4.6); Lymphocytes % 15.7 %; Mean Corpuscular HGB Conc 31.6 g/dL (31.6-35.5); Mean Corpuscular Hemoglobin 31.7 pg (28.0-33.3); Mean Corpuscular Volume 100.4 fL (83.0-100.0); Mean Platelet Volume 8.3 fL (9.4-12.4); Monocytes # 0.8 K/mcL (0.0-1.3); Monocytes % 10.5 %; Platelet Count 337 K/mcL (140-400); Red Blood Count 2.49 M/mcL (3.82-4.97); Red Cell Distribution Width 13.2 % (11.5-14.5); Segmented Neutrophils % 66.3 %; White Blood Count 7.6 K/mcL (4.3-11.1)
[2020-08-06] MEDS: Cyanocobalamin (B-12) 1,000 MCG TABLET PO SCH (10:37)
[2020-08-06] MEDS: Clotrimazole/Betameth Dip CRM 45 APPL/45 GM TUBE TP SCH ×2 (10:38→20:21)
[2020-08-06 11:23] LABS: Calcium 9.5 mg/dL (8.6-10.3); Potassium 4.2 mEq/L (3.5-5.1)
[2020-08-06] MEDS: QUEtiapine Fumarate 25 MG TABLET PO SCH (20:21)
[2020-08-06] MEDS: Mirtazapine 15 MG TABLET PO SCH (20:21)
[2020-08-07] MEDS: *HR* HYDROcodone/Acet 10/325 mg TABLET PO PRN ×5 (04:22→22:40)
[2020-08-07 05:39] LABS: Basophils % 0.3 %; Eosinophils # 0.5 K/mcL (0.0-0.6); Eosinophils % 6.3 %; Hematocrit 24.7 % (35.3-44.9); Hemoglobin 7.7 g/dL (11.5-15.4); Immature Granulocytes % 0.9 % (0-4); Lymphocytes # 1.6 K/mcL (0.6-4.6); Lymphocytes % 19.7 %; Mean Corpuscular HGB Conc 31.2 g/dL (31.6-35.5); Mean Corpuscular Hemoglobin 31.3 pg (28.0-33.3); Mean Corpuscular Volume 100.4 fL (83.0-100.0); Mean Platelet Volume 8.4 fL (9.4-12.4); Monocytes # 0.9 K/mcL (0.0-1.3); Monocytes % 11.6 %; Neutrophils # 4.8 K/mcL (1.6-8.9); Platelet Count 336 K/mcL (140-400); Red Blood Count 2.46 M/mcL (3.82-4.97); Red Cell Distribution Width 13.1 % (11.5-14.5); Segmented Neutrophils % 61.2 %; White Blood Count 7.9 K/mcL (4.3-11.1)
[2020-08-07 05:55] LABS: Calcium 9.3 mg/dL (8.6-10.3)
[2020-08-07 06:06] LABS: Potassium 4.4 mEq/L (3.5-5.1)
[2020-08-07] MEDS: amLODIPine 5 MG TABLET PO SCH (08:42)
[2020-08-07] MEDS: Folic Acid 1 MG TABLET PO SCH (08:42)
[2020-08-07] MEDS: Isosorbide MONOnitrate (24 HR) 30 MG TAB.ER.24H PO SCH (08:42)
[2020-08-07] MEDS: calcitrioL 0.25 MCG CAPSULE PO SCH (08:42)
[2020-08-07] MEDS: Cholecalciferol (D-3) 1,000 UNIT (25MCG) TABLET PO SCH (08:42)
[2020-08-07] MEDS: Magnesium Oxide 400 MG TABLET PO SCH (08:42)
[2020-08-07] MEDS: Ascorbic Acid 500 MG TABLET PO SCH (08:42)
[2020-08-07] MEDS: Bumetanide 1 MG TABLET PO SCH ×2 (08:42→17:18)
[2020-08-07] MEDS: Sennosides 8.6 MG TABLET PO SCH ×2 (08:43→20:50)
[2020-08-07] MEDS: Cyanocobalamin (B-12) 1,000 MCG TABLET PO SCH (08:44)
[2020-08-07] MEDS: Clotrimazole/Betameth Dip CRM 45 APPL/45 GM TUBE TP SCH ×2 (08:44→20:50)
[2020-08-07] MEDS: Mirtazapine 15 MG TABLET PO SCH (20:49)
[2020-08-07] MEDS: QUEtiapine Fumarate 25 MG TABLET PO SCH (20:50)
[2020-08-08] MEDS: *HR* HYDROcodone/Acet 10/325 mg TABLET PO PRN ×4 (03:41→21:32)
[2020-08-08] MEDS: Sennosides 8.6 MG TABLET PO SCH ×2 (09:14→21:34)
[2020-08-08] MEDS: Magnesium Oxide 400 MG TABLET PO SCH (09:15)
[2020-08-08] MEDS: Folic Acid 1 MG TABLET PO SCH (09:15)
[2020-08-08] MEDS: Isosorbide MONOnitrate (24 HR) 30 MG TAB.ER.24H PO SCH (09:15)
[2020-08-08] MEDS: amLODIPine 5 MG TABLET PO SCH (09:15)
[2020-08-08] MEDS: Cyanocobalamin (B-12) 1,000 MCG TABLET PO SCH (09:15)
[2020-08-08] MEDS: Bumetanide 1 MG TABLET PO SCH ×2 (09:15→16:44)
[2020-08-08] MEDS: Cholecalciferol (D-3) 1,000 UNIT (25MCG) TABLET PO SCH (09:15)
[2020-08-08] MEDS: Ascorbic Acid 500 MG TABLET PO SCH (09:15)
[2020-08-08] MEDS: calcitrioL 0.25 MCG CAPSULE PO SCH (09:15)
[2020-08-08] MEDS: Clotrimazole/Betameth Dip CRM 45 APPL/45 GM TUBE TP SCH ×2 (09:16→21:41)
[2020-08-08] MEDS: Mirtazapine 15 MG TABLET PO SCH (21:32)
[2020-08-08] MEDS: tiZANidine 4 MG TABLET PO PRN (21:33)
[2020-08-08] MEDS: QUEtiapine Fumarate 25 MG TABLET PO SCH (21:34)
[2020-08-09] MEDS: *HR* HYDROcodone/Acet 10/325 mg TABLET PO PRN ×3 (03:51→17:05)
[2020-08-09 05:07] LABS: Basophils % 0.3 %; Eosinophils # 0.5 K/mcL (0.0-0.6); Hematocrit 25.1 % (35.3-44.9); Hemoglobin 7.8 g/dL (11.5-15.4); Lymphocytes # 1.6 K/mcL (0.6-4.6); Lymphocytes % 21.2 %; Mean Corpuscular HGB Conc 31.1 g/dL (31.6-35.5); Mean Corpuscular Hemoglobin 31.2 pg (28.0-33.3); Mean Corpuscular Volume 100.4 fL (83.0-100.0); Mean Platelet Volume 8.3 fL (9.4-12.4); Monocytes # 0.9 K/mcL (0.0-1.3); Monocytes % 11.4 %; Neutrophils # 4.6 K/mcL (1.6-8.9); Platelet Count 347 K/mcL (140-400); Red Cell Distribution Width 12.9 % (11.5-14.5); Segmented Neutrophils % 60.1 %; White Blood Count 7.7 K/mcL (4.3-11.1)
[2020-08-09 05:19] LABS: Calcium 9.5 mg/dL (8.6-10.3); Potassium 4.4 mEq/L (3.5-5.1)
[2020-08-09] MEDS: calcitrioL 0.25 MCG CAPSULE PO SCH (08:03)
[2020-08-09] MEDS: Ascorbic Acid 500 MG TABLET PO SCH (08:03)
[2020-08-09] MEDS: Bumetanide 1 MG TABLET PO SCH ×2 (08:03→17:06)
[2020-08-09] MEDS: Folic Acid 1 MG TABLET PO SCH (08:03)
[2020-08-09] MEDS: Sennosides 8.6 MG TABLET PO SCH ×2 (08:03→20:07)
[2020-08-09] MEDS: Cholecalciferol (D-3) 1,000 UNIT (25MCG) TABLET PO SCH (08:03)
[2020-08-09] MEDS: Isosorbide MONOnitrate (24 HR) 30 MG TAB.ER.24H PO SCH (08:03)
[2020-08-09] MEDS: amLODIPine 5 MG TABLET PO SCH (08:05)
[2020-08-09] MEDS: Magnesium Oxide 400 MG TABLET PO SCH (08:05)
[2020-08-09] MEDS: Cyanocobalamin (B-12) 1,000 MCG TABLET PO SCH (08:05)
[2020-08-09] MEDS: Clotrimazole/Betameth Dip CRM 45 APPL/45 GM TUBE TP SCH ×2 (08:05→20:04)
[2020-08-09] MEDS: Mirtazapine 15 MG TABLET PO SCH (20:05)
[2020-08-09] MEDS: QUEtiapine Fumarate 25 MG TABLET PO SCH (20:08)
[2020-08-09] MEDS: Budesonide/Formoterol 160/4.5 1 PUFF INH IH SCH (20:19)
[2020-08-10] MEDS: *HR* HYDROcodone/Acet 10/325 mg TABLET PO PRN ×4 (01:03→20:37)
[2020-08-10] MEDS: Budesonide/Formoterol 160/4.5 1 PUFF INH IH SCH ×2 (07:28→22:44)
[2020-08-10] MEDS: Sennosides 8.6 MG TABLET PO SCH ×2 (08:13→20:29)
[2020-08-10] MEDS: Cholecalciferol (D-3) 1,000 UNIT (25MCG) TABLET PO SCH (08:13)
[2020-08-10] MEDS: Bumetanide 1 MG TABLET PO SCH ×2 (08:13→17:35)
[2020-08-10] MEDS: Folic Acid 1 MG TABLET PO SCH (08:14)
[2020-08-10] MEDS: Ascorbic Acid 500 MG TABLET PO SCH (08:14)
[2020-08-10] MEDS: calcitrioL 0.25 MCG CAPSULE PO SCH (08:14)
[2020-08-10] MEDS: Magnesium Oxide 400 MG TABLET PO SCH (08:14)
[2020-08-10] MEDS: amLODIPine 5 MG TABLET PO SCH (08:14)
[2020-08-10] MEDS: Clotrimazole/Betameth Dip CRM 45 APPL/45 GM TUBE TP SCH ×2 (08:15→20:28)
[2020-08-10] MEDS: Isosorbide MONOnitrate (24 HR) 30 MG TAB.ER.24H PO SCH (08:15)
[2020-08-10] MEDS: Cyanocobalamin (B-12) 1,000 MCG TABLET PO SCH (08:15)
[2020-08-10] MEDS: Mirtazapine 15 MG TABLET PO SCH (20:29)
[2020-08-10] MEDS: QUEtiapine Fumarate 25 MG TABLET PO SCH (20:29)
[2020-08-10 21:05] LABS: Bilirubin,Urine Negative (Negative); Blood,Urine Trace-intact (Negative); Clarity,Urine Slightly Cloudy (Clear); Glucose,Urine (UA) Normal (Normal); Ketones,Urine Negative (Negative); Leukocyte Esterase,Urine Negative (Negative); Nitrite,Urine Negative (Negative); Protein,Urine >=300 mg/dL (Neg-Trace); Specific Gravity,Urine 1.025 (1.010-1.025); Urobilinogen,Urine Normal (Normal)
[2020-08-10 21:08] LABS: Color,Urine Yellow (Yellow)
[2020-08-10 21:09] LABS: Amorphous Sediment,Urine Few per hpf (None-Few); RBC,Urine 0-3 per hpf (0-3); Squamous Epithelial Cell,Urine Few per hpf (None-Few)
[2020-08-11] MEDS: amLODIPine 5 MG TABLET PO SCH (08:11)
[2020-08-11] MEDS: *HR* HYDROcodone/Acet 10/325 mg TABLET PO PRN ×3 (08:11→20:11)
[2020-08-11] MEDS: Folic Acid 1 MG TABLET PO SCH (08:11)
[2020-08-11] MEDS: Magnesium Oxide 400 MG TABLET PO SCH (08:11)
[2020-08-11] MEDS: Isosorbide MONOnitrate (24 HR) 30 MG TAB.ER.24H PO SCH (08:12)
[2020-08-11] MEDS: Sennosides 8.6 MG TABLET PO SCH ×2 (08:12→20:10)
[2020-08-11] MEDS: Cholecalciferol (D-3) 1,000 UNIT (25MCG) TABLET PO SCH (08:12)
[2020-08-11] MEDS: Ascorbic Acid 500 MG TABLET PO SCH (08:12)
[2020-08-11] MEDS: Bumetanide 1 MG TABLET PO SCH ×2 (08:12→15:59)
[2020-08-11] MEDS: calcitrioL 0.25 MCG CAPSULE PO SCH (08:12)
[2020-08-11] MEDS: Clotrimazole/Betameth Dip CRM 45 APPL/45 GM TUBE TP SCH ×2 (08:15→20:10)
[2020-08-11] MEDS: Cyanocobalamin (B-12) 1,000 MCG TABLET PO SCH (08:16)
[2020-08-11] MEDS: Budesonide/Formoterol 160/4.5 1 PUFF INH IH SCH ×2 (09:56→19:22)
[2020-08-11] MEDS: QUEtiapine Fumarate 25 MG TABLET PO SCH (20:10)
[2020-08-11] MEDS: Mirtazapine 15 MG TABLET PO SCH (20:10)
[2020-08-12] MEDS: *HR* HYDROcodone/Acet 10/325 mg TABLET PO PRN ×3 (06:52→21:47)
[2020-08-12] MEDS: Magnesium Oxide 400 MG TABLET PO SCH (09:27)
[2020-08-12] MEDS: Bumetanide 1 MG TABLET PO SCH ×2 (09:27→16:18)
[2020-08-12] MEDS: Folic Acid 1 MG TABLET PO SCH (09:27)
[2020-08-12] MEDS: calcitrioL 0.25 MCG CAPSULE PO SCH (09:28)
[2020-08-12] MEDS: Sennosides 8.6 MG TABLET PO SCH ×2 (09:28→21:46)
[2020-08-12] MEDS: Cholecalciferol (D-3) 1,000 UNIT (25MCG) TABLET PO SCH (09:28)
[2020-08-12] MEDS: amLODIPine 5 MG TABLET PO SCH (09:28)
[2020-08-12] MEDS: Cyanocobalamin (B-12) 1,000 MCG TABLET PO SCH (09:28)
[2020-08-12] MEDS: Isosorbide MONOnitrate (24 HR) 30 MG TAB.ER.24H PO SCH (09:28)
[2020-08-12] MEDS: Ascorbic Acid 500 MG TABLET PO SCH (09:28)
[2020-08-12] MEDS: Clotrimazole/Betameth Dip CRM 45 APPL/45 GM TUBE TP SCH ×2 (09:29→21:46)
[2020-08-12] MEDS: Budesonide/Formoterol 160/4.5 1 PUFF INH IH SCH ×2 (09:36→20:44)
[2020-08-12] MEDS ORDERED: Darbepoetin 100 MCG/0.5 ML SYRINGE SQ ONE (10:30)
[2020-08-12] MEDS: Mirtazapine 15 MG TABLET PO SCH (21:46)
[2020-08-12] MEDS: QUEtiapine Fumarate 25 MG TABLET PO SCH (21:47)
[2020-08-13 05:42] LABS: Hematocrit 23.9 % (35.3-44.9); Hemoglobin 7.4 g/dL (11.5-15.4); Mean Corpuscular Hemoglobin 31.1 pg (28.0-33.3); Mean Corpuscular Volume 100.4 fL (83.0-100.0); Mean Platelet Volume 8.5 fL (9.4-12.4); Platelet Count 362 K/mcL (140-400); Red Blood Count 2.38 M/mcL (3.82-4.97); Red Cell Distribution Width 13.1 % (11.5-14.5)
[2020-08-13 05:57] LABS: Albumin 2.8 g/dL (3.5-5.7); Bilirubin,Total 0.2 mg/dL (0.3-1.0); Calcium 9.5 mg/dL (8.6-10.3); Globulin 2.7 g/dL (2.4-3.5); Magnesium 1.5 mg/dL (1.6-2.6); Potassium 4.1 mEq/L (3.5-5.1); Total Protein 5.5 g/dL (6.4-8.9)
[2020-08-13] MEDS: *HR* HYDROcodone/Acet 10/325 mg TABLET PO PRN ×3 (06:11→21:40)
[2020-08-13] MEDS: Budesonide/Formoterol 160/4.5 1 PUFF INH IH SCH (08:22)
[2020-08-13] MEDS: Cholecalciferol (D-3) 1,000 UNIT (25MCG) TABLET PO SCH (09:12)
[2020-08-13] MEDS: Cyanocobalamin (B-12) 1,000 MCG TABLET PO SCH (09:14)
[2020-08-13] MEDS: Bumetanide 1 MG TABLET PO SCH ×2 (09:16→17:20)
[2020-08-13] MEDS: Magnesium Oxide 400 MG TABLET PO SCH ×2 (09:16→20:21)
[2020-08-13] MEDS: calcitrioL 0.25 MCG CAPSULE PO SCH (09:16)
[2020-08-13] MEDS: Sennosides 8.6 MG TABLET PO SCH ×2 (09:17→20:20)
[2020-08-13] MEDS: amLODIPine 5 MG TABLET PO SCH (09:18)
[2020-08-13] MEDS: Folic Acid 1 MG TABLET PO SCH (09:19)
[2020-08-13] MEDS: Ascorbic Acid 500 MG TABLET PO SCH (09:20)
[2020-08-13] MEDS: Isosorbide MONOnitrate (24 HR) 30 MG TAB.ER.24H PO SCH (09:20)
[2020-08-13] MEDS: Clotrimazole/Betameth Dip CRM 45 APPL/45 GM TUBE TP SCH ×2 (09:22→20:25)
[2020-08-13] MEDS ORDERED: hydrALAZINE 10 MG TABLET PO PRN (17:39)
[2020-08-13] MEDS: Mirtazapine 15 MG TABLET PO SCH (20:20)
[2020-08-13] MEDS: QUEtiapine Fumarate 25 MG TABLET PO SCH (20:21)
[2020-08-14] MEDS: *HR* HYDROcodone/Acet 10/325 mg TABLET PO PRN ×4 (06:12→23:27)
[2020-08-14] MEDS: Bumetanide 1 MG TABLET PO SCH ×2 (06:12→18:09)
[2020-08-14] MEDS: amLODIPine 5 MG TABLET PO SCH (09:30)
[2020-08-14] MEDS: Sennosides 8.6 MG TABLET PO SCH ×2 (09:31→21:27)
[2020-08-14] MEDS: Isosorbide MONOnitrate (24 HR) 30 MG TAB.ER.24H PO SCH (09:31)
[2020-08-14] MEDS: Folic Acid 1 MG TABLET PO SCH (09:31)
[2020-08-14] MEDS: Cholecalciferol (D-3) 1,000 UNIT (25MCG) TABLET PO SCH (09:31)
[2020-08-14] MEDS: calcitrioL 0.25 MCG CAPSULE PO SCH (09:31)
[2020-08-14] MEDS: Magnesium Oxide 400 MG TABLET PO SCH ×2 (09:32→21:28)
[2020-08-14] MEDS: Ascorbic Acid 500 MG TABLET PO SCH (09:34)
[2020-08-14] MEDS: Cyanocobalamin (B-12) 1,000 MCG TABLET PO SCH (09:34)
[2020-08-14] MEDS: Clotrimazole/Betameth Dip CRM 45 APPL/45 GM TUBE TP SCH ×2 (09:34→21:29)
[2020-08-14] MEDS: QUEtiapine Fumarate 25 MG TABLET PO SCH (21:28)
[2020-08-14] MEDS: Mirtazapine 15 MG TABLET PO SCH (21:28)
[2020-08-14] MEDS: tiZANidine 4 MG TABLET PO PRN (23:28)
[2020-08-15] MEDS: *HR* HYDROcodone/Acet 10/325 mg TABLET PO PRN ×4 (05:31→21:24)
[2020-08-15 06:25] LABS: Hematocrit 26.3 % (35.3-44.9); Hemoglobin 8.1 g/dL (11.5-15.4); Mean Corpuscular HGB Conc 30.8 g/dL (31.6-35.5); Mean Corpuscular Hemoglobin 30.9 pg (28.0-33.3); Mean Corpuscular Volume 100.4 fL (83.0-100.0); Mean Platelet Volume 8.5 fL (9.4-12.4); Platelet Count 402 K/mcL (140-400); Red Blood Count 2.62 M/mcL (3.82-4.97); White Blood Count 7.8 K/mcL (4.3-11.1)
[2020-08-15 06:39] LABS: Magnesium 1.8 mg/dL (1.6-2.6); Potassium 4.1 mEq/L (3.5-5.1)
[2020-08-15] MEDS: Sennosides 8.6 MG TABLET PO SCH ×2 (08:25→21:22)
[2020-08-15] MEDS: Cholecalciferol (D-3) 1,000 UNIT (25MCG) TABLET PO SCH (08:25)
[2020-08-15] MEDS: Magnesium Oxide 400 MG TABLET PO SCH ×2 (08:25→21:24)
[2020-08-15] MEDS: Ascorbic Acid 500 MG TABLET PO SCH (08:26)
[2020-08-15] MEDS: calcitrioL 0.25 MCG CAPSULE PO SCH (08:26)
[2020-08-15] MEDS: Isosorbide MONOnitrate (24 HR) 30 MG TAB.ER.24H PO SCH (08:26)
[2020-08-15] MEDS: Cyanocobalamin (B-12) 1,000 MCG TABLET PO SCH (08:26)
[2020-08-15] MEDS: Bumetanide 1 MG TABLET PO SCH ×2 (08:26→17:18)
[2020-08-15] MEDS: Clotrimazole/Betameth Dip CRM 45 APPL/45 GM TUBE TP SCH ×2 (08:27→21:24)
[2020-08-15] MEDS: Folic Acid 1 MG TABLET PO SCH (08:27)
[2020-08-15] MEDS: amLODIPine 5 MG TABLET PO SCH (08:27)
[2020-08-15] MEDS: Mirtazapine 15 MG TABLET PO SCH (21:22)
[2020-08-15] MEDS: QUEtiapine Fumarate 25 MG TABLET PO SCH (21:23)
[2020-08-16] MEDS: *HR* HYDROcodone/Acet 10/325 mg TABLET PO PRN ×4 (04:32→21:32)
[2020-08-16] MEDS: calcitrioL 0.25 MCG CAPSULE PO SCH (08:07)
[2020-08-16] MEDS: Cyanocobalamin (B-12) 1,000 MCG TABLET PO SCH (08:07)
[2020-08-16] MEDS: Isosorbide MONOnitrate (24 HR) 30 MG TAB.ER.24H PO SCH (08:07)
[2020-08-16] MEDS: Bumetanide 1 MG TABLET PO SCH ×2 (08:08→17:08)
[2020-08-16] MEDS: Cholecalciferol (D-3) 1,000 UNIT (25MCG) TABLET PO SCH (08:08)
[2020-08-16] MEDS: Folic Acid 1 MG TABLET PO SCH (08:08)
[2020-08-16] MEDS: amLODIPine 5 MG TABLET PO SCH (08:08)
[2020-08-16] MEDS: Magnesium Oxide 400 MG TABLET PO SCH ×2 (08:08→21:34)
[2020-08-16] MEDS: Sennosides 8.6 MG TABLET PO SCH ×2 (08:08→21:34)
[2020-08-16] MEDS: Ascorbic Acid 500 MG TABLET PO SCH (08:08)
[2020-08-16] MEDS: Clotrimazole/Betameth Dip CRM 45 APPL/45 GM TUBE TP SCH ×2 (08:12→21:35)
[2020-08-16] MEDS: Mirtazapine 15 MG TABLET PO SCH (21:32)
[2020-08-16] MEDS: QUEtiapine Fumarate 25 MG TABLET PO SCH (21:34)
[2020-08-17 07:49] VITALS: BP 156/72
[2020-08-17] MEDS: Bumetanide 1 MG TABLET PO SCH (07:59)
[2020-08-17] MEDS: Folic Acid 1 MG TABLET PO SCH (07:59)
[2020-08-17] MEDS: amLODIPine 5 MG TABLET PO SCH (07:59)
[2020-08-17] MEDS: Isosorbide MONOnitrate (24 HR) 30 MG TAB.ER.24H PO SCH (07:59)
[2020-08-17] MEDS: Ascorbic Acid 500 MG TABLET PO SCH (07:59)
[2020-08-17] MEDS: Cholecalciferol (D-3) 1,000 UNIT (25MCG) TABLET PO SCH (07:59)
[2020-08-17] MEDS: Sennosides 8.6 MG TABLET PO SCH (07:59)
[2020-08-17] MEDS: Magnesium Oxide 400 MG TABLET PO SCH (07:59)
[2020-08-17] MEDS: calcitrioL 0.25 MCG CAPSULE PO SCH (07:59)
[2020-08-17] MEDS: Cyanocobalamin (B-12) 1,000 MCG TABLET PO SCH (07:59)
[2020-08-17] MEDS: Clotrimazole/Betameth Dip CRM 45 APPL/45 GM TUBE TP SCH (08:00)
[2020-08-17] MEDS: *HR* HYDROcodone/Acet 10/325 mg TABLET PO PRN (08:01)
== END 2020-08-17 10:53 | disposition home health service (06) | DRG 560 ==
LOC: INPGRE 07-31 15:48
PROVIDERS: ADMIT Family Medicine; ATTEND Family Medicine